=== PATIENT | male | born 1970 | race Caucasian/White ===

== ENCOUNTER 2021-09-16 10:38 | Outpatient (CLI) | payer OTHER | END 2021-09-16 10:39 | disposition home or self-care (01) | LOC: CSHMRI 10:38 | PROVIDERS: ATTEND Neurological Surgery | DX: M54.16 Radiculopathy, lumbar region (principal); M47.816 Spondylosis without myelopathy or radiculopathy, lumbar region | CPT/HCPCS: 72148 ==